=== PATIENT | male | born 1980 | race Caucasian/White ===

== ENCOUNTER 2018-12-15 20:50 | Emergency (ER) | payer SELFPAY ==
[2018-12-15 20:54] VITALS: BP 144/88
[2018-12-15] MEDS ORDERED: CLINDAMYCIN 150 MG CAPSULE PO STA (21:12)
[2018-12-15] MEDS ORDERED: HYDROcod/ACET 5/325 Prepack 4 PO STA (21:12)
--- NOTE | 2018-12-15 21:15 | ED Physician Documentation ---
History of Present Illness - Stated complaint Stated Complaint: TOOTH PX - Chief complaint Chief Complaint: Heent - History obtained from History obtained from: Patient - History of Present Illness Timing: Other (About 3 days of worsening pain from a right mandibular molar with known cavity in it. It bothered him for a while a year ago when he saw a dentist could not afford to have it filled. He had facial swelling which is now gone. No measured fevers.) Review of Systems Constitutional: denies: Fever, Chills, Fatigue Nose: denies: Rhinorrhea / runny nose, Congestion Throat: denies: Sore throat Respiratory: denies: Dyspnea, Cough PD PAST MEDICAL HISTORY - Past Medical History Past Medical History: No - Past Surgical History Past Surgical History: No - Present Medications Home Medications: Ambulatory Orders Medication Instructions Recorded Confirmed Clindamycin HCl [Clindamycin 300MG 300 mg PO Q6H #40 capsule 12/15/18 CAP] Hydrocodone/Acetaminophen 1 - 2 each PO Q6H PRN #10 tablet 12/15/18 [Hydrocodon-Acetaminophen 5-325] - Allergies Allergies/Adverse Reactions: Allergies Allergy/AdvReac Type Severity Reaction Status Date / Time Penicillins AdvReac Severe "flighty, Verified 12/15/18 20:54 out of body expeience" - Social History Does the pt smoke?: Yes Smoking Status: Current every day smoker Does the pt drink ETOH?: No Does the pt have substance abuse?: No - Immunizations Immunizations are current?: Yes - POLST Patient has POLST: No PD ED PE NORMAL - Vitals Vital signs reviewed: Yes - General General: Alert and oriented X 3, No acute distress - HEENT HEENT: Other (Large tender cavity from the right mandibular molar without sublingual tenderness, facial edema or swelling or trismus.) - Neck Neck: Supple, no meningeal sign, No bony TTP - Neuro Neuro: Alert and oriented X 3, Normal speech Results - Vitals Vitals: Vital Signs - 24 hr 12/15/18 20:53 Temperature 36.2 C L Heart Rate 60 Respiratory 16 Rate Blood Pressure 144/88 H O2 Saturation 99 Oxygen O2 Source Room air Departure - Departure Disposition: 01 Home, Self Care Clinical Impression: Pain due to dental caries Condition: Good Record reviewed to determine appropriate education?: Yes Instructions: ED Tooth Pain Prescriptions: Clindamycin HCl [Clindamycin 300MG CAP] 300 mg PO Q6H #40 capsule Hydrocodone/Acetaminophen [Hydrocodon-Acetaminophen 5-325] 1 - 2 each PO Q6H PRN #10 tablet PRN Reason: pain Comments: It is very important that you follow-up with a dentist. When it comes to dental problems like yours, the emergency department can only offer a short-term solution to your long-term problem. A couple of low cost options for dental care include: [facility] in [place], calls [phone] for an appointment Or [facility] in [place], call [phone] for an appointment.
== END 2018-12-15 21:32 | disposition home or self-care (01) ==
LOC: ED 20:50
DX: K02.9 Dental caries, unspecified (principal); F17.200 Nicotine dependence, unspecified, uncomplicated
CPT/HCPCS: 99283; A9270

== ENCOUNTER 2021-07-26 14:22 | Emergency (ER) | payer MEDICAID ==
[2021-07-26 14:44] VITALS: BP 134/76
--- NOTE | 2021-07-26 15:40 | ED Physician Documentation ---
PD HPI UPPER EXT INJURY - Stated complaint Stated Complaint: R SHOULDER PAIN - Chief complaint Chief Complaint: Ext Problem - History obtained from History obtained from: Patient - History of Present Illness Location: Right, Shoulder Type of injury: Other (he does construction with repetitive lifting, ROM, overhead work and power tools (vibrational). No abrupt injury per se.). No: Fall, Twist Where injury occurred: Work Timing - onset: How many weeks ago (has had some pains for long time, but particularly more painful to inhibit daily work for the past few weeks. Poor sleeping due to pain at night.) Timing - duration: Weeks Timing - details: Gradual onset, Still present Worsened by: Moving, Palpating (anterior mostly) Associated symptoms: No: Weakness, Numbness, Swelling Similar symptoms before: No diagnosis Recently seen: Not recently seen Review of Systems Constitutional: denies: Fever, Chills Nose: denies: Rhinorrhea / runny nose, Congestion Throat: denies: Sore throat Respiratory: denies: Cough Skin: denies: Rash, Lesions Neurologic: denies: Focal weakness, Numbness PD PAST MEDICAL HISTORY - Past Medical History Cardiovascular: None Respiratory: None Neuro: None Musculoskeletal: None - Past Surgical History Past Surgical History: No - Present Medications Home Medications: Ambulatory Orders Medication Instructions Recorded Confirmed Clindamycin HCl [Clindamycin 300MG 300 mg PO Q6H #40 capsule 12/15/18 CAP] Hydrocodone/Acetaminophen 1 - 2 each PO Q6H PRN #10 tablet 12/15/18 [Hydrocodon-Acetaminophen 5-325] HYDROcod/ACETAM 5/325 [[place] 5/325] 1 ea PO Q6H PRN #18 tablet 07/26/21 Meloxicam [Mobic] 7.5 mg PO BID 10 Days #40 tablet 07/26/21 - Allergies Allergies/Adverse Reactions: Allergies Allergy/AdvReac Type Severity Reaction Status Date / Time Penicillins AdvReac Severe "flighty, Verified 07/26/21 14:44 out of body expeience" - Social History Does the pt smoke?: Yes Smoking Status: Current every day smoker Does the pt drink ETOH?: No Does the pt have substance abuse?: No - Immunizations Immunizations are current?: Yes - POLST Patient has POLST: No PD ED PE NORMAL - Vitals Vital signs reviewed: Yes - General General: Alert and oriented X 3, Well developed/nourished - Derm Derm: Normal color, Warm and dry, No rash - Extremities Extremities: Other (right shoulder tender anterior and some at AC area without deformity. Rotational testing is strong, but pain with ext rotation, abduction, and extension c/w rotator cuff process (? supraspinatus)) - Neuro Neuro: Alert and oriented X 3, No motor deficit, No sensory deficit Results - Vitals Vitals: Oxygen O2 Source Room air - Rads (name of study) right shoulder Radiology: Prelim report reviewed (no acute process), See rad report PD MEDICAL DECISION MAKING - ED course Complexity details: reviewed results (xray without acute. ), considered differential (ongoing pain with regular work (he does construction, so overhead and repetitive ROM, power tools, etc). Pain with rotational movements.), d/w patient Departure - Departure Disposition: 01 Home, Self Care Clinical Impression: Shoulder pain, right Qualifiers: Chronicity: acute Qualified Code(s): M25.511 - Pain in right shoulder Rotator cuff tendonitis Qualifiers: Laterality: right Qualified Code(s): M75.81 - Other shoulder lesions, right shoulder Condition: Stable Record reviewed to determine appropriate education?: Yes Instructions: ED Tendinitis Rotator Cuff Follow-Up: Jose Rednon MD [Provider Admit Priv/Credential] - Prescriptions: Meloxicam [Mobic] 7.5 mg PO BID 10 Days #40 tablet HYDROcod/ACETAM 5/325 [[place] 5/325] 1 ea PO Q6H PRN #18 tablet PRN Reason: Pain Comments: Your x-ray does not show any obvious bony abnormality to account for the pain. Clinically it would seem likely that you have rotator cuff tendinitis. In the short-term try to avoid repetitive use and especially vibrating power tools overhead reaching and heavy lifting (which I know is pretty much all that you do for work). Try to modify it the best that you can however. Rest your shoulder as much as possible outside of work. Regular anti-inflammatories as prescribed twice daily with food. To that add Tylenol 4 times a day as needed for pains. Add hydrocodone as needed at times for worse pain particular at night or such. Avoid power tools and driving and such with the opioid pain medicines. Follow-up with orthopedics for further evaluation and assessment on the shoulder. Call for an appointment. I transmitted your prescriptions to [facility] in [place]. I am prescribing a short course of narcotic pain medication for you. These are potentially dangerous and addictive medications that should be used carefully. These medications may constipate you. Take an [id number] stool softener such as docusate twice daily with plenty of water while taking these medications. If you go 24 hours without a bowel movement, take [id number] MiraLAX, per package instructions. Do not drink or drive while taking these medications. If you received narcotic or sedating medications while in the emergency department do not drive for 24 hours. Store this medication in a safe, secure place and out of reach of children. It is a violation of federal law to give or sell this medication to another person or to use in a manner other than prescribed. The ED will not refill narcotic prescriptions, including prescriptions lost or stolen. You can dispose of unwanted medications at the [facility]'s office or at several pharmacies such as [email or web address]. Discharge Date/Time: 07/26/21 17:37
[2021-07-26] MEDS: NAPROXEN 250 MG TABLET PO STA (16:18)
[2021-07-26] MEDS: DEXAMETHASONE 10 MG/ML VIAL PO STA (16:19)
[2021-07-26] MEDS: CHERRY SYRUP 10 ML UDC PO ONE (16:19)
--- NOTE | 2021-07-26 17:11 | XRAY Report ---
PROCEDURE: Shoulder 2 View RT x-ray INDICATIONS: shoulder pain for weeks, worsening TECHNIQUE: 3 views of the shoulder were acquired. COMPARISON: None. FINDINGS: Bones: No fractures or dislocations. No suspicious bony lesions. Visualized ribs appear intact. Soft tissues: No suspicious soft tissue calcifications. IMPRESSION: Unremarkable right shoulder radiographs Reviewed by: Jasvir Simeon MD on 07/26/2021 4:10 PM [facility] Approved by: Jasvir Simeon MD on 07/26/2021 4:10 PM [facility] Station ID: [id number]
[2021-07-26] MEDS: HYDROcod/ACET 5/325 Prepack 4 PO STA (17:34)
== END 2021-07-26 17:37 | disposition home or self-care (01) ==
LOC: ED 14:22
DX: M25.511 Pain in right shoulder (principal); M75.81 Other shoulder lesions, right shoulder; M70.811 Other soft tissue disorders related to use, overuse and pressure, right shoulder; X50.3XXA Overexertion from repetitive movements, initial encounter; Y93.H3 Activity, building and construction; Y99.0 Civilian activity done for income or pay; F17.200 Nicotine dependence, unspecified, uncomplicated
CPT/HCPCS: 73030; 99282; 99283; A9270

== ENCOUNTER 2021-09-08 08:00 | Outpatient (CLI) | payer MEDICAID ==
--- NOTE | 2021-09-08 19:51 | XRAY Report ---
PROCEDURE: Shoulder 3 View RT INDICATIONS: SHOUDLER PAIN TECHNIQUE: 4 views of the shoulder were acquired. COMPARISON: Right shoulder radiographs 07/26/2021. FINDINGS: Bones: No acute fractures or dislocations. No suspicious bony lesions. Visualized ribs appear inta ct. Mild to moderate degenerative changes are seen in the acromioclavicular joint. Soft tissues: No suspicious soft tissue calcifications. IMPRESSION: No acute osseous abnormality. If symptoms persist or there is continued clinical concern , further evaluation with MRI or CT may be helpful. Reviewed by: Bayron Lizarraga MD on 09/08/2021 7:50 PM PDT Approved by: Bayron Lizarraga MD on 09/08/2021 7:50 PM PDT Station ID: [id number]
== END 2021-09-08 23:59 ==
LOC: DI.WOS 08:00
PROVIDERS: ATTEND Physician Assistant
DX: M25.511 Pain in right shoulder (principal)

== ENCOUNTER 2021-10-21 14:10 | Outpatient (CLI) | payer MEDICAID ==
--- NOTE | 2021-10-21 16:58 | MRI Report ---
PROCEDURE: Shoulder RT W/O INDICATIONS: ROTATOR CUFF INJURY RIGHT SHOULDER TECHNIQUE: Noncontrast oblique coronal T2 fast spin echo with fat saturation, oblique sagittal T1 spin echo and T2 fast spin echo with fat saturation, axial T1 spin echo and T2 fast spin echo with fat saturation t hrough the shoulder. COMPARISON: None. FINDINGS: Image quality: Excellent. Rotator cuff: Moderate T2 signal elevation diffusely throughout the supraspinatus and infraspinatus t endons at the humeral insertion sites extending the muscular tendinous junctions, indicating tendinop athy. Superimposed high-grade intrasubstance and articular surface tearing of the anterior supraspina tus tendon at the humeral insertion site, measuring roughly 10 mm anteroposterior. Low-grade partial- thickness intrasubstance tearing of the anterior and mid infraspinatus tendon at the humeral insertio n site extending the muscular tendinous junction. Subcapsular is and teres minor tendons are intact. No rotator cuff atrophy. Bones and bursae: No bone marrow contusions or fractures. Moderate acromioclavicular joint degenerat ion. The acromion demonstrates conventional anatomy, without an os acromiale. A small amount of suba cromial/subdeltoid bursal fluid is present. Capsule and soft tissues: In the absence of intra-articular contrast, the labrum and glenohumeral li gaments appear intact. The long head of the biceps tendon demonstrates normal location and morpholog y. The rotator interval appears normal, without fibrosis. The coracohumeral ligament is normal in t hickness. IMPRESSION: 1. Supraspinatus and infraspinatus tendinopathy. 2. Superimposed partial thickness tears of the supraspinatus and infraspinatus tendons. No full-thick ness rotator cuff tear. 3. Subacromial bursitis. 4. Acromial clavicular joint osteoarthritis. Reviewed by: Shae Julian MD on 10/21/2021 4:57 PM PDT Approved by: Shae Julian MD on 10/21/2021 4:57 PM PDT Station ID: [id number]
== END 2021-10-21 14:11 | disposition home or self-care (01) ==
LOC: DI 14:10
PROVIDERS: ATTEND Physician Assistant
DX: M75.111 Incomplete rotator cuff tear or rupture of right shoulder, not specified as traumatic (principal); M75.51 Bursitis of right shoulder; M19.011 Primary osteoarthritis, right shoulder

== ENCOUNTER 2022-04-27 12:46 | Outpatient (CLI) | payer MEDICAID ==
[2022-04-27 13:07] LABS: BASOPHILS % (AUTO) 0.6 %; EOSINOPHILS # (AUTO) 0.3 10^3/uL (0.0-0.7); EOSINOPHILS % (AUTO) 3.9 %; HCT - HEMATOCRIT 44.8 % (42.0-52.0); HGB - HEMOGLOBIN 15.1 g/dL (14.0-18.0); LYMPHOCYTES % (AUTO) 27.8 %; MEAN CORPUSCULAR HEMOGLOBIN 28.3 pg (27.0-31.0); MEAN CORPUSCULAR HGB CONC 33.7 g/dL (32.0-36.0); MEAN CORPUSCULAR VOLUME 83.9 fL (80.0-94.0); MONOCYTES # (AUTO) 0.7 10^3/uL (0.0-1.0); MONOCYTES % (AUTO) 10.3 %; NEUTROPHILS # (AUTO) 4.1 10^3/uL (1.5-6.6); NEUTROPHILS % (AUTO) 57.1 %; PLT - PLATELET COUNT 302 10^3/uL (130-450); RED BLOOD COUNT 5.34 10^6/uL (4.70-6.10); RED CELL DISTRIBUTION WIDTH 11.9 % (12.0-15.0); WHITE BLOOD COUNT 7.2 x10^3/uL (4.8-10.8)
[2022-04-27 13:35] LABS: ALBUMIN 4.5 g/dL (3.2-5.5); ALBUMIN/GLOBULIN RATIO 1.6 (1.0-2.2); ALKALINE PHOSPHATASE 55 IU/L (42-121); ALT ALANINE AMINOTRANSFERASE 31 IU/L (10-60); AST ASPARTATE AMINOTRANSFERASE 27 IU/L (10-42); BILIRUBIN,TOTAL 0.5 mg/dL (0.2-1.0); BUN - BLOOD UREA NITROGEN 12 mg/dL (6-20); CALCIUM 9.3 mg/dL (8.5-10.3); CARBON DIOXIDE - CO2 25 mmol/L (21-32); CHLORIDE 100 mmol/L (101-111); CHOL/HDL RATIO 3.9 (<5.0); CHOLESTEROL 193 mg/dL; CREATININE 0.9 mg/dL (0.6-1.2); GFR - MDRD 93 (>89); GLUCOSE 98 mg/dL (70-100); HDL CHOLESTEROL 50 mg/dL; LDL CHOLESTEROL,CALCULATED 129 mg/dL; LDL/HDL RATIO 2.6 (<3.6); POTASSIUM 3.5 mmol/L (3.5-5.0); SODIUM 135 mmol/L (135-145); TOTAL PROTEIN 7.3 g/dL (6.7-8.2); TRIGLYCERIDES 70 mg/dL; VLDL CHOLESTEROL 14 mg/dL
[2022-04-27 13:44] LABS: THYROID STIMULATING HORMONE 1.1 uIU/mL (0.34-5.60)
--- NOTE | 2022-04-27 16:07 | XRAY Report ---
PROCEDURE: Finger(s) RT INDICATIONS: FINGER PAIN TECHNIQUE: AP hand, 2 views of the fifth digit acquired. COMPARISON: None FINDINGS: Bones: No fractures or dislocations. No suspicious bony lesions. Soft tissues: No suspicious soft tissue calcifications. IMPRESSION: No acute osseous abnormality. If symptoms persist, follow-up radiographs and/or CT may be helpful for further evaluation. Reviewed by: Bayron Mills MD on 04/27/2022 4:06 PM PDT Approved by: Bayron Mills MD on 04/27/2022 4:06 PM PDT Station ID: [id number]
[2022-04-28 10:09] LABS: HCV AB <0.1 s/co ratio (0.0-0.9)
== END 2022-04-27 12:47 | disposition home or self-care (01) ==
LOC: LAB 12:46
PROVIDERS: ATTEND Hospitalist
DX: Z11.59 Encounter for screening for other viral diseases (principal); Z13.0 Encounter for screening for diseases of the blood and blood-forming organs and certain disorders involving the immune mechanism; Z13.1 Encounter for screening for diabetes mellitus; Z13.220 Encounter for screening for lipoid disorders; Z13.29 Encounter for screening for other suspected endocrine disorder; M79.644 Pain in right finger(s)
CPT/HCPCS: 36415; 80053; 80061; 83721; 84443; 85025; 86803

== ENCOUNTER 2022-08-19 08:46 | Emergency (ER) | payer MEDICAID ==
[2022-08-19 08:57] VITALS: BP 134/70
--- NOTE | 2022-08-19 08:59 | ED Physician Documentation ---
PD HPI OPHTHO - Stated complaint Stated Complaint: EYE IRRITATION/PX - Chief complaint Chief Complaint: Cardiac - History obtained from History obtained from: Patient - History of Present Illness Timing - onset: How many days ago (2) Timing - duration: Days (2) Timing - details: Gradual onset, Still present Location: Right Quality / character: Burning Associated symptoms: Redness, Discharge, Matting. No: FB sensation Contributing factors: No: Recent URI, FB, Wears contacts Similar symptoms before: Has not had sx before Review of Systems Constitutional: denies: Fever Eyes: denies: Loss of vision, Photophobia Nose: denies: Rhinorrhea / runny nose, Congestion, Sinus pressure / pain Throat: denies: Sore throat PD PAST MEDICAL HISTORY - Past Medical History Cardiovascular: None Respiratory: None Neuro: None Musculoskeletal: None - Past Surgical History Past Surgical History: No - Present Medications Home Medications: Ambulatory Orders Medication Instructions Recorded Confirmed Clindamycin HCl [Clindamycin 300MG 300 mg PO Q6H #40 capsule 12/15/18 CAP] Hydrocodone/Acetaminophen 1 - 2 each PO Q6H PRN #10 tablet 12/15/18 [Hydrocodon-Acetaminophen 5-325] HYDROcod/ACETAM 5/325 [[place] 5/325] 1 ea PO Q6H PRN #18 tablet 07/26/21 Meloxicam [Mobic] 7.5 mg PO BID 10 Days #40 tablet 07/26/21 Ketorolac Tromethamine 2 drops RIGHTEYE TID 5 Days #5 ml 08/19/22 Polymyxin B/Trimeth Ophth Drop 2 drops RIGHTEYE QID 5 Days #10 ml 08/19/22 [Polytrim Ophth Drops] - Allergies Allergies/Adverse Reactions: Allergies Allergy/AdvReac Type Severity Reaction Status Date / Time Penicillins AdvReac Severe "flighty, Verified 07/26/21 14:44 out of body expeience" - Social History Does the pt smoke?: Yes Smoking Status: Current every day smoker Does the pt drink ETOH?: No Does the pt have substance abuse?: No - Immunizations Immunizations are current?: Yes - POLST Patient has POLST: No PD ED PE NORMAL - Vitals Vital signs reviewed: Yes - General General: Alert and oriented X 3, No acute distress, Well developed/nourished - HEENT HEENT: PERRL, EOMI (not light sensitive), Other (Redness and hyperemia with some mild discharge of the right conjunctive a. Anterior chamber is clear and no light sensitivity. No fluorescein dye uptake.) Results - Vitals Vitals: Vital Signs - 24 hr 08/19/22 08:53 Temperature 36.5 C Heart Rate 62 Respiratory 18 Rate Blood Pressure 134/70 H O2 Saturation 100 Oxygen O2 Source Room air PD Medical Decision Making - ED course Complexity details: considered differential (Unilateral eye irritation and discharge without any URI symptoms foreign bodies nor contact use. Presume bacterial infection.), d/w patient Departure - Departure Disposition: Home, Self Care Clinical Impression: Conjunctivitis Qualifiers: Conjunctivitis type: acute Acute conjunctivitis type: unspecified Laterality: right Qualified Code(s): H10.31 - Unspecified acute conjunctivitis, right eye Condition: Stable Record reviewed to determine appropriate education?: Yes Instructions: ED Conjunctivitis Bacterial Follow-Up: RAYSA ALY [Primary Care Provider] - Prescriptions: Ketorolac Tromethamine 2 drops RIGHTEYE TID 5 Days #5 ml Polymyxin B/Trimeth Ophth Drop [Polytrim Ophth Drops] 2 drops RIGHTEYE QID 5 Days #10 ml Comments: Use the antibiotic and anti-inflammatory eyedrops as directed. The antibiotic drops can be every 2-3 hours for the first day and then can go to 4 times a day for several days. The anti-inflammatory would be 3-4 times a day. I would anticipate improvement in the iovera for a day or 2 but I would continue the drops for 3 to 5 days. Recheck if not better in that timeframe. Return if worse or if any vision abnormality, deeper pain, light sensitivity or other concerns. Tylenol or ibuprofen can be used for general pain as well. I sent your prescription to [facility] in [place]. Discharge Date/Time: 08/19/22 09:27
[2022-08-19] MEDS ORDERED: PROPARACAINE 0.5% OPHTH DROPS 15 ML EACHEYE STA (09:00)
== END 2022-08-19 09:27 | disposition home or self-care (01) ==
LOC: ED 08:46
DX: H10.31 Unspecified acute conjunctivitis, right eye (principal); F17.200 Nicotine dependence, unspecified, uncomplicated
CPT/HCPCS: 99282; 99283; J3490